=== PATIENT | male | born 1950 | race Two or more races ===

== ENCOUNTER 2021-06-07 12:37 | Emergency (ER) | payer MEDICAID, OTHER ==
[~2021-06-07] VITALS: Ht 167.6 cm; Wt 68.0 kg
[2021-06-07] MEDS ORDERED: cloNIDine HCL 0.1 MG TAB ONE (12:44)
[2021-06-07] MEDS ORDERED: cloNIDine HCL 0.1 MG TAB PO ONE (12:45)
[2021-06-07] MEDS ORDERED: IBU600T PO (12:58)
[2021-06-07 14:20] VITALS: BP 172/86
== END 2021-06-07 14:10 | disposition home or self-care (01) ==
LOC: ER 12:41
DX: I10 Essential (primary) hypertension (principal); M79.672 Pain in left foot; Z79.1 Long term (current) use of non-steroidal anti-inflammatories (NSAID)
CPT/HCPCS: 73620

== ENCOUNTER 2021-07-14 11:36 | Emergency (ER) | payer MEDICAID ==
[~2021-07-14] VITALS: Ht 167.6 cm; Wt 86.2 kg
[~2021-07-14 11:36] MED LIST: IBU600T PO
[2021-07-14 11:44] VITALS: BP 167/106
[2021-07-14] MEDS ORDERED: PROM1SOL4 PO (12:34)
[2021-07-14] MEDS ORDERED: LEVO500T31 PO (12:34)
[2021-07-14] MEDS ORDERED: TRIA37.56 PO (12:34)
[2021-07-14] MEDS ORDERED: ACETAMINOPHEN 500 MG TAB PO ONE (12:45)
== END 2021-07-14 12:47 | disposition home or self-care (01) ==
LOC: ER 11:36
DX: J20.9 Acute bronchitis, unspecified (principal); I10 Essential (primary) hypertension
CPT/HCPCS: 71046

== ENCOUNTER 2023-02-01 11:34 | Emergency (ER) | payer SELFPAY ==
[~2023-02-01] VITALS: Ht 190.5 cm; Wt 91.5 kg
[2023-02-01 11:34] VITALS: BP 170/80; PULSE 80; RESP 18; O2SAT 99
[~2023-02-01 11:34] MED LIST changes: +LEVO500T31 PO; +PROM1SOL4 PO; +TRIA37.587 PO
[2023-02-01 13:23] LABS: Basophils # (auto) 0 10 ^3/uL (0-0.2); Basophils % (auto) 0.4 % (0.0-2.0); Eosinophils # (auto) 0 10 ^3/uL (0-0.8); Hematocrit 48.8 % (41.0-53.0); Hemoglobin 16.5 g/dL (13.5-17.5); Lymphocytes # (auto) 0.9 10 ^3/uL (0.4-5.4); Lymphocytes % (auto) 8.1 % (10.0-50.0); Mean Corpuscular Hemoglobin 30.5 pg (28.0-32.0); Mean Corpuscular Hgb Conc. 33.7 g/dL (32.0-36.0); Mean Corpuscular Volume 90.5 fL (80.0-100.0); Monocytes # (auto) 0.8 10 ^3/uL (0-1.3); Monocytes % (auto) 6.8 % (0.0-12.0); Neutrophils # (auto) 9.5 10 ^3/uL (1.6-8.6); Neutrophils % (auto) 84.7 % (37.0-80.0); Nucleated Red Blood Cells % 0.1 %; Red Cell Distribution Width 13.9 % (11.8-14.3); White Blood Cell 11.3 10^3/uL (4.4-10.8)
[2023-02-01 13:46] LABS: Alanine Aminotransferase 89 U/L (7-40); Albumin 4.7 g/dL (3.2-4.8); Alkaline Phosphatase 125 U/L (46-116); Anion Gap 9 (5-15); Aspartate Aminotransferase 62 U/L (13-40); BUN/Creatinine Ratio 11.9 (10.0-20.0); Blood Urea Nitrogen 13 mg/dL (9-23); Calcium 9.8 mg/dL (8.5-10.1); Carbon Dioxide 24 mmol/L (20-30); Chloride 98 mmol/L (98-107); Glucose 126 mg/dL (74-106); Potassium 4.4 mmol/L (3.5-5.1); Sodium 131 mmol/L (136-145)
[2023-02-01 13:47] LABS: Bilirubin, Total 0.7 mg/dL (0.2-1.0)
[2023-02-01 17:49] LABS: Urine Bacteria FEW /hpf (None Seen); Urine Blood 2+ /uL (Negative); Urine Clarity Clear (Clear); Urine Color Yellow (Yellow); Urine Mucus FEW (None Seen); Urine Protein, UAD 1+ (Negative); Urine Specific Gravity 1.021 (1.001-1.035); Urine Urobilinogen Normal (Negative); Urine WBC 38 /hpf (0 - 3); Urine pH 5.5 (5.0-8.0)
[2023-02-01] MEDS ORDERED: CIPR-173 PO (17:52)
== END 2023-02-01 20:25 | disposition left against medical advice (07) ==
LOC: ER 11:34
DX: N39.0 Urinary tract infection, site not specified (principal); F17.210 Nicotine dependence, cigarettes, uncomplicated; F12.90 Cannabis use, unspecified, uncomplicated; Z79.899 Other long term (current) drug therapy
CPT/HCPCS: 36415; 71046; 80053; 81001; 85025